=== PATIENT | female | born 1950 | race Caucasian/White ===

== ENCOUNTER 2016-12-29 11:03 | Day surgery (SDC) | payer OTHER ==
[~2016-12-29] VITALS: Ht 152.4 cm; Wt 66.4 kg
[2016-12-29] MEDS ORDERED: LOSARTAN (11:46)
[2016-12-29] MEDS ORDERED: OMEPRAZOLE (11:46)
[2016-12-29 11:47] VITALS: Ht 152.4 cm; Wt 66.4 kg
[2016-12-29 13:22] VITALS: BP 127/75; PULSE 61; RESP 16
[2016-12-29] MEDS ORDERED: FENTAnyl 50 MCG/ML VIAL ONE (13:59)
[2016-12-29] MEDS ORDERED: MIDAZOLAM 1 MG/ML 2 ML INJ ONE ×2 (13:59)
--- NOTE | 2016-12-29 14:10 | GILP ---
DATE OF PROCEDURE: 12/29/2016 NAME OF PROCEDURES: 1. Esophagogastroduodenoscopy and biopsy. 2. Colonoscopy. SURGEON: Silvano Latham MD PREOPERATIVE DIAGNOSES: 1. Abdominal pain. 2. Screening colonoscopy. POSTOPERATIVE DIAGNOSES: 1. Gastritis. 2. Gastric mucosal biopsies were taken for Helicobacter pylori test. 3. Colonoscopy all the way to the cecum. 4. Internal hemorrhoids. 5. No colon neoplasm was identified. INDICATION FOR THE PROCEDURE: Ms. Miguelina Lafleur is a 66-year-old female patient who had upper abdominal pain, not responding to therapy. Patient also needed screening colonoscopy. The procedures and possible complications were well explained to the patient. The patient understoo d and consented to the procedure. DESCRIPTION OF PROCEDURE: Under the influence of fentanyl and Versed, the gastroscope was carefully introduced into the esophagus and under direct vision, it was advanced to the stomach and through t he pylorus into the duodenal bulb and descending duodenum. FINDINGS: ESOPHAGUS: The mucosa was normal. STOMACH: The patient had gastritis. Gastric mucosal biopsies were taken for H. pylori test. DUODENUM: Normal. The colonoscope was carefully introduced in the rectum and under direct vision, it was advanced all the way to the cecum. FINDINGS: The patient had internal hemorrhoids. No colon neoplasm was identified. She tolerated the procedures very well and there was no complication from the procedures. At the en d of the procedures, she was awake with stable vital signs and she was discharged home to the care o f her family. IMPRESSION: 1. Gastritis. 2. Gastric mucosal biopsies were taken for Helicobacter pylori test. 3. Colonoscopy all the way to the cecum. 4. Internal hemorrhoids. 5. No colon neoplasm was identified. PLAN: 1. Continue Prilosec. 2. Add Zantac 300 mg p.o. at bedtime. 3. Next screening colonoscopy in 10 years. Dictated By: SILVANO LATHAM MD GD/NTS Conf#: [id number] DID#: [id number] CC: SILVANO LATHAM MD;*EndCC*
[2016-12-29 14:15] VITALS: BP 108/55; PULSE 63; RESP 20
[2016-12-29 14:29] VITALS: BP 125/62; PULSE 64; RESP 20
== END 2016-12-29 16:18 | disposition home or self-care (01) ==
LOC: GIL 11:03
PROVIDERS: ATTEND Internal Medicine Gastroenterology
DX: Z12.11 Encounter for screening for malignant neoplasm of colon (principal); K29.70 Gastritis, unspecified, without bleeding; K64.8 Other hemorrhoids; I10 Essential (primary) hypertension
CPT/HCPCS: 43239; 45378; 87081; J2250; J3010; Z7610

== ENCOUNTER 2019-05-02 08:29 | Day surgery (SDC) | payer OTHER ==
[~2019-05-02] VITALS: Ht 152.4 cm; Wt 62.5 kg
[~2019-05-02 08:29] MED LIST: LOSARTAN; OMEPRAZOLE
[2019-05-02 09:55] VITALS: Ht 152.4 cm; Wt 62.5 kg
[2019-05-02 10:24] VITALS: BP 142/60; PULSE 54; RESP 22
[2019-05-02] MEDS ORDERED: FENTAnyl 50 MCG/ML VIAL ONE (11:36)
[2019-05-02] MEDS ORDERED: MIDAZOLAM 1 MG/ML 2 ML INJ ONE ×2 (11:36)
[2019-05-02 11:47] VITALS: BP 134/69; PULSE 60
== END 2019-05-02 17:50 | disposition home or self-care (01) ==
LOC: GIL 08:29
PROVIDERS: ATTEND Internal Medicine Gastroenterology
DX: K64.8 Other hemorrhoids (principal); D50.9 Iron deficiency anemia, unspecified; D12.2 Benign neoplasm of ascending colon; K21.9 Gastro-esophageal reflux disease without esophagitis
CPT/HCPCS: 43239; 45380; 88305; 88312; J2250; J3010; Z7610